=== PATIENT | male | born 1970 | race American Indian/Alaskan Native ===

== ENCOUNTER 2016-07-19 22:02 | Emergency (ER) | payer OTHER ==
--- NOTE | 2016-07-20 01:09 | Emergency Department Report ---
HPI - General Chief Complaint: Urogenital-Male Time Seen by Provider: 07/20/16 00:30 - HPI HPI: 45-year-old male presents today stating that his partner cheated on him and was recently diagnosed with Trichomonas. Patient would like to treat it. Denies penile discharge, burning upon urination, increased urinary frequency or urgency , blood in urine. Denies any other medical complaints. Denies fever, chills, nausea, vomiting, chest pain, shortness of breath, abdominal pain, visual changes, headache. Denies history of high blood pressure. ED Past Medical Hx - Past Medical History Previous Medical History?: No - Surgical History Past Surgical History?: No - Social History Smoking Status: Never Smoker Substance Use Type: None - Medications Home Medications: Home Medications Medication Instructions Recorded Confirmed Last Taken Type Cyclobenzaprine [Flexeril] 10 mg PO TID PRN #14 tablet 03/02/15 Unknown Rx HYDROcodone/APAP 5-325 [[place] 1 - 2 each PO Q6HR PRN #14 tablet 03/02/15 Unknown Rx 5/325] Ibuprofen [Motrin 800 MG tab] 800 mg PO Q8HR PRN #20 tablet 03/02/15 Unknown Rx metroNIDAZOLE [Flagyl] 500 mg PO Q12HR #14 tab 07/20/16 Unknown Rx ED Review of Systems ROS: Stated complaint: POSS STD Other details as noted in HPI Constitutional: denies: chills, fever, malaise Eyes: denies: eye pain, vision change ENT: denies: ear pain, throat pain, congestion Respiratory: denies: cough, shortness of breath, wheezing Cardiovascular: denies: chest pain, palpitations Endocrine: no symptoms reported Gastrointestinal: denies: abdominal pain, nausea, vomiting Genitourinary: denies: urgency, dysuria, frequency, hematuria, discharge, testicular pain, testicular mass Skin: denies: rash Neurological: denies: headache, weakness, numbness, paresthesias Physical Exam - Physical Exam Vital Signs: Vital Signs 07/19/16 07/19/16 22:41 23:03 Temperature 99.3 F Pulse Rate 105 H 102 H Respiratory 18 16 Rate Blood Pressure 176/115 Blood Pressure 162/104 [Left] O2 Sat by Pulse 100 100 Oximetry Physical Exam: GENERAL: The patient is well-developed and well-nourished. Patient is in NAD. HEAD: Normocephalic. Atraumatic. CHEST/LUNGS: Clear to auscultation throughout. HEART/CARDIOVASCULAR: Regular rate and rhythm. No murmurs, rubs or gallops. ABDOMEN: Abdomen is soft, nontender. Bowel sounds normoactive. No guarding or rebound tenderness. Negative for CVA tenderness bilaterally. EXTREMITIES: Peripheral pulses intact. Capillary refill less than 2 seconds. NEURO: Alert and oriented x 3. Normal gait. ED Course Vital Signs 07/19/16 07/19/16 22:41 23:03 Temperature 99.3 F Pulse Rate 105 H 102 H Respiratory 18 16 Rate Blood Pressure 176/115 Blood Pressure 162/104 [Left] O2 Sat by Pulse 100 100 Oximetry ED Medical Decision Making - Lab Data Vital Signs 07/19/16 07/19/16 07/20/16 22:41 23:03 01:31 Temperature 99.3 F Pulse Rate 105 H 102 H 91 H Respiratory 18 16 18 Rate Blood Pressure 176/115 Blood Pressure 162/104 189/94 [Left] O2 Sat by Pulse 100 100 99 Oximetry - Medical Decision Making 45-year-old male presents today for treatment of Trichomonas post partner being diagnosed. His physical exam is unremarkable. Patient is in no acute distress at this time. He will be discharged home and is encouraged to follow up with a primary care provider. He will be sent home on Flagyl and is encouraged to return to the emergency room for any worsening symptoms. Patient denies history of hypertension. As per the [employer] clinical policy on asymptomatic hypertension: Initiating treatment for asymptomatic hypertension in the ED is not necessary when patients have follow-up; (2) Rapidly lowering blood pressure in asymptomatic patients in the ED is unnecessary and may be harmful in some patients; (3) When ED treatment for asymptomatic hypertension is initiated, blood pressure management should attempt to gradually lower blood pressure and should not be expected to be normalized during the initial ED visit. Emphasized the importance of follow up with primary care physician and explained to patient that uncontrolled hypertension can lead to long-term complications of hypertension/elevated blood pressure including stroke, heart attack, disability, , paralysis, permanent loss of quality of life. Patient expressed understanding and will follow up with PCP. Critical care attestation.: If time is entered above; I have spent that time in minutes in the direct care of this critically ill patient, excluding procedure time. ED Disposition Clinical Impression: Exposure to trichomonas, Elevated blood pressure reading Disposition: DISCHARGED TO HOME OR SELFCARE Is pt being admited?: No Does the pt Need Aspirin: No Condition: Stable Instructions: Trichomoniasis (ED), Hypertension (ED) Additional Instructions: Follow-up with primary care provider. Return to the emergency department if symptoms worsen. Prescriptions: metroNIDAZOLE [Flagyl] 500 mg PO Q12HR #14 tab Referrals: PRIMARY CARE, [Primary Care Provider] - 3-5 Days [facility] [Outside] - 3-5 Days Forms: Work/School Release Form(ED) Time of Disposition: 01:16
[2016-07-20 01:31] VITALS: BP 189/94
== END 2016-07-20 01:40 | disposition home or self-care (01) ==
LOC: ED 22:02
DX: Z20.2 Contact with and (suspected) exposure to infections with a predominantly sexual mode of transmission (principal); R03.0 Elevated blood-pressure reading, without diagnosis of hypertension
CPT/HCPCS: 99282

== ENCOUNTER 2020-07-09 18:30 | Emergency (ER) | payer OTHER ==
[2020-07-09 18:42] VITALS: BP 138/77
[2020-07-09] MEDS ORDERED: IBUPROFEN 600 MG TAB PO ONE (18:48)
--- NOTE | 2020-07-09 19:13 | Event Note ---
ED Screening Note Date of service: 07/09/20 Time: 19:02 ED Screening Note: 49-year-old -[place] male presents to the emergency room complaining of 3-day history of intermittent watery diarrhea decreased appetite but is able to drink plenty of water. Body aches and noticed that today in triage he had a temperature. Patient is taking nothing for his symptoms. Patient has a past medical history of hypertension but does not know the name of his medication. Patient states he has a primary care provider but he had no appointments. This initial assessment/diagnostic orders/clinical plan/treatment(s) is/are subject to change based on patients health status, clinical progression and re- assessment by fellow clinical providers in the ED. Further treatment and workup at subsequent clinical providers discretion. Patient/guardian urged not to elope from the ED as their condition may be serious if not clinically assessed and managed. Initial orders include:
[2020-07-09 21:19] LABS: Basophils % (Auto) 0.8 % (0.0-1.8); Hematocrit 41.1 % (35.5-45.6); Hemoglobin 14.3 gm/dl (11.8-15.2); Lymphocytes # (Auto) 1.2 K/mm3 (1.2-5.4); Lymphocytes % (Auto) 20.8 % (13.4-35.0); Mean Corpuscular HGB Conc 35 % (32-34); Mean Corpuscular Volume 90 fl (84-94); Monocytes # (Auto) 0.4 K/mm3 (0.0-0.8); Monocytes % (Auto) 6.7 % (0.0-7.3); Platelet Count 151 K/mm3 (140-440); Red Blood Count 4.59 M/mm3 (3.65-5.03)
[2020-07-09 21:43] LABS: Albumin 3.2 g/dL (3.9-5); Calcium 7.6 mg/dL (8.4-10.2)
[2020-07-09] MEDS ORDERED: SODIUM CHLORIDE 0.9% 1000 ML 2,000 ML IV ONE (22:09)
--- NOTE | 2020-07-09 22:21 | Emergency Department Report ---
ED General Adult HPI - General Chief complaint: Nausea/Vomiting/Diarrhea Stated complaint: DEHYDRATION Time Seen by Provider: 07/09/20 20:27 Source: patient Mode of arrival: Ambulatory Limitations: No Limitations - History of Present Illness Initial comments: 49-year-old -[place] male presents to the emergency room complaining of 3-day history of intermittent watery diarrhea decreased appetite but is able to drink plenty of water. Body aches and noticed that today in triage he had a temperature. Patient is taking nothing for his symptoms. Patient has a past medical history of hypertension but does not know the name of his medication. P atient states he has a primary care provider but he had no appointments. - Related Data Previous Rx's Medication Instructions Recorded Last Taken Type Cyclobenzaprine [Flexeril] 10 mg PO TID PRN #14 tablet 03/02/15 Unknown Rx HYDROcodone/APAP 5-325 [[place] 1 - 2 each PO Q6HR PRN #14 tablet 03/02/15 Unknown Rx 5/325] Ibuprofen [Motrin 800 MG tab] 800 mg PO Q8HR PRN #20 tablet 03/02/15 Unknown Rx metroNIDAZOLE [Flagyl] 500 mg PO Q12HR #14 tab 07/20/16 Unknown Rx Allergies Allergy/AdvReac Type Severity Reaction Status Date / Time No Known Allergies Allergy Verified 03/02/15 04:32 ED Review of Systems ROS: Stated complaint: DEHYDRATION Other details as noted in HPI ED Past Medical Hx - Past Medical History Previous Medical History?: Yes Hx Hypertension: Yes - Surgical History Past Surgical History?: No - Social History Smoking Status: Never Smoker Substance Use Type: None - Medications Home Medications: Home Medications Medication Instructions Recorded Confirmed Last Taken Type Cyclobenzaprine [Flexeril] 10 mg PO TID PRN #14 tablet 03/02/15 Unknown Rx HYDROcodone/APAP 5-325 [[place] 1 - 2 each PO Q6HR PRN #14 tablet 03/02/15 Unknown Rx 5/325] Ibuprofen [Motrin 800 MG tab] 800 mg PO Q8HR PRN #20 tablet 03/02/15 Unknown Rx metroNIDAZOLE [Flagyl] 500 mg PO Q12HR #14 tab 07/20/16 Unknown Rx ED Physical Exam - General Limitations: No Limitations General appearance: alert, in no apparent distress - Head Head exam: Present: atraumatic, normocephalic - Eye Eye exam: Present: normal appearance - ENT ENT exam: Present: normal exam - Neck Neck exam: Present: normal inspection, full ROM - Respiratory Respiratory exam: Present: normal lung sounds bilaterally. Absent: respiratory distress, chest wall tenderness, accessory muscle use - Cardiovascular Cardiovascular Exam: Present: regular rate, normal rhythm. Absent: systolic murmur, diastolic murmur, rubs, gallop - GI/Abdominal GI/Abdominal exam: Present: soft, normal bowel sounds - Extremities Exam Extremities exam: Present: normal inspection, full ROM - Back Exam Back exam: Present: normal inspection, full ROM. Absent: tenderness - Neurological Exam Neurological exam: Present: alert, oriented X3, normal gait - Psychiatric Psychiatric exam: Present: normal affect, normal mood - Skin Skin exam: Present: warm, dry, intact, normal color. Absent: rash ED Course Vital Signs 07/09/20 07/09/20 18:37 22:33 Temperature 101.2 F H 98.5 F Pulse Rate 95 H 74 Respiratory 20 17 Rate Blood Pressure 138/77 [Right] O2 Sat by Pulse 96 96 Oximetry ED Medical Decision Making - Lab Data Result diagrams: 07/09/20 20:38 07/09/20 20:38 Laboratory Tests 07/09/20 07/09/20 20:38 20:38 WBC 6.0 RBC 4.59 Hgb 14.3 Hct 41.1 MCV 90 MCH 31 MCHC 35 H RDW 13.0 L Plt Count 151 Lymph % (Auto) 20.8 [place] % (Auto) 6.7 Eos % (Auto) 0.0 Baso % (Auto) 0.8 Lymph # (Auto) 1.2 [place] # (Auto) 0.4 Eos # (Auto) 0.0 Baso # (Auto) 0.0 Seg Neutrophils % 71.7 H Seg Neutrophils # 4.3 Sodium 132 L Potassium 4.2 Chloride 95.6 L Carbon Dioxide 24 Anion Gap 17 BUN 35 H Creatinine 2.6 H Estimated GFR 32 BUN/Creatinine Ratio 13 Glucose 98 Calcium 7.6 L Total Bilirubin 0.50 AST 161 H ALT 49 Alkaline Phosphatase 61 Total Protein 6.1 L Albumin 3.2 L Albumin/Globulin Ratio 1.1 - Medical Decision Making 49-year-old -[place] male presents to the emergency room complaining of 3-day history of intermittent watery diarrhea decreased appetite but is able to drink plenty of water. Body aches and noticed that today in triage he had a t emperature. Patient is taking nothing for his symptoms. Patient has a past medical history of hypertension but does not know the name of his medication. Patient states he has a primary care provider but he had no appointments. 2 L of normal saline. Ibuprofen given in triage Discussed with patient to follow-up with a range operator as his serum creatinine was 2.6 BUN of 35. Patient does have a history of hypertension. Critical care attestation.: If time is entered above; I have spent that time in minutes in the direct care of this critically ill patient, excluding procedure time. ED Disposition Clinical Impression: VIKI (acute kidney injury), Viral syndrome Diarrhea Qualifiers: Diarrhea type: unspecified type Qualified Code(s): R19.7 - Diarrhea, unspecified Disposition: TO HOME OR SELFCARE Is pt being admited?: No Does the pt Need Aspirin: No Condition: Stable Instructions: Acute Kidney Injury, Adult, Hand Washing, [id number], Diarrhea, Adult, [id number] Additional Instructions: Your kidney function as follows BUN 35, serum creatinine 2.6. It is very important for you to follow-up with a range operator. I have listed the information below for your convenience. Also is very important for you to follow-up with your primary care provider to have repeat labs as your calcium level was 7.6. Continue increasing your fluid intake. Referrals: DHRUV MUNOZ MD [Primary Care Provider] - 3-5 Days ARMANDO BOURNE MD [Referring] - 3-5 Days EM CASTILLO MD [Staff Physician] - 3-5 Days Forms: Work/School Release Form(ED)
== END 2020-07-10 00:58 | disposition home or self-care (01) ==
LOC: ED 18:30
DX: N17.9 Acute kidney failure, unspecified (principal); B34.9 Viral infection, unspecified; R19.7 Diarrhea, unspecified; I10 Essential (primary) hypertension; Z79.899 Other long term (current) drug therapy
CPT/HCPCS: 36415; 80053; 85025; 96360; 96361; 99283; J7030